=== PATIENT | male | born 1960 | race African-American/Black ===

== ENCOUNTER 2019-05-10 15:00 | Observation (INO) | payer MEDICAID, OTHER ==
[2019-05-10] MEDS ORDERED: Nitroglycerin 2% Ointment 1 INCH/1 GM Packet ONE (15:20)
[2019-05-10 15:27] LABS: Hemoglobin 14.7 g/dL (14.0-18.0); Mean Corpuscular HGB CONC 34.1 g/dL (32.0-36.0); Mean Corpuscular Hemoglobin 33.2 pg (27.0-31.0); Mean Corpuscular Volume 97.4 fL (78.0-98.0); Mean Platelet Volume 8.7 fL (7.4-10.4); Platelet Count 152 thou/uL (130-400); RBC Distribution Width 11.9 % (11.5-14.5); Red Blood Cell (RBC) Count 4.42 mill/uL (4.70-6.10); White Blood Cell (WBC) Count 4.3 thou/uL (4.8-10.8)
[2019-05-10 15:35] LABS: INR-International Normal Ratio 0.9; PTT 29.3 SEC (22.9-36.1); Prothrombin Time 12.4 SEC (12.0-14.7)
--- NOTE | 2019-05-10 15:45 | CT ---
CT Brain WO Con: 05/10/2019 3:13 PM CLINICAL HISTORY: Stroke alert for right-sided weakness. IMAGING TECHNIQUE: Multiple CT images were obtained of the brain without IV contrast. COMPARISON: None. FINDINGS: Brain: No acute infarct or hemorrhage is evident. No midline shift. Ventricles: Normal. No hydrocephalus.. Skull: Intact.. Visualized Paranasal sinuses: Clear.. Mastoid air cells:Clear. Extracranial soft tissues:Normal. IMPRESSION: No acute intracranial abnormality. Findings called to Dr. Paz at 3:43 PM on May 10, 2019.
[2019-05-10 15:47] LABS: Band 2 % (5-11); Lymphocytes 28 % (21-51); MDiff Complete? YES; Monocytes 8 % (0-10); Neutrophil 53 % (42-75); Platelet Morphology Comment Appears Adequate; Reactive Lymphocytes 9 % (0-10)
[2019-05-10 15:49] LABS: ALT (SGPT) 15 U/L (8-55); AST (SGOT) 20 U/L (5-34); Albumin 4.2 g/dL (3.5-5.0); Alkaline Phosphatase 70 U/L (40-110); Anion Gap 10 mmol/L (10-20); BUN (Urea Nitrogen) 9 mg/dL (8.4-25.7); Bilirubin, Total 0.6 mg/dL (0.2-1.2); Calc. Creatinine Clearance 0 mL/min (70-130); Calcium 9.6 mg/dL (7.8-10.44); Carbon Dioxide 30 mmol/L (22-29); Chloride 103 mmol/L (98-107); Estimated GFR-MDRD Greater than 90; Globulin 2.9 g/dL (2.4-3.5); Glucose 89 mg/dL (70-105); Potassium 3.8 mmol/L (3.5-5.1); Protein, Total 7.1 g/dL (6.0-8.3); Sodium 139 mmol/L (136-145)
[2019-05-10] MEDS ORDERED: Aspirin 325 MG TAB ONE (16:14)
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
[2019-05-10] MEDS ORDERED: Ondansetron ODT 4 MG TAB PO PRN (18:23)
[2019-05-10] MEDS ORDERED: hydrALAZINE 20 MG/ML VIAL SLOW IVP PRN (18:23)
[2019-05-10] MEDS ORDERED: Ondansetron PF 4 MG/2 ML Vial IVP PRN (18:23)
[2019-05-10] MEDS ORDERED: Acetaminophen 325 MG TAB PO PRN (18:23)
[2019-05-10] MEDS ORDERED: Nicotine 14 MG PATCH TD SCH (19:00)
[2019-05-10 19:20] LABS: INR-International Normal Ratio 0.8; Prothrombin Time 11.4 SEC (12.0-14.7)
[2019-05-10 19:23] LABS: Hemoglobin A1c 5.4 % (4.0-6.0)
[2019-05-10] MEDS ORDERED: Atorvastatin Calcium 40 MG TAB PO SCH (21:00)
[2019-05-11 01:09] LABS: Amphetamine Not Detected (NotDetected); Barbiturates Screen Not Detected (NotDetected); Benzodiazepine Screen Not Detected (NotDetected); Cocaine Metabolite Screen Not Detected (NotDetected); Medtox Control Line Valid? VALID (VALID); Medtox Reader # READER 4; Methadone Not Detected (NotDetected); Methamphetamine Not Detected (NotDetected); Opiate Screen Not Detected (NotDetected); Oxycodone Screen Not Detected (NotDetected); Phencyclidine (PCP) Not Detected (NotDetected); THC/Cannabinoid Screen Not Detected (NotDetected); Tricyclic Screen Not Detected (NotDetected)
[2019-05-11 05:43] LABS: #Eosinphils 0.1 thou/uL (0.0-0.7); #Lymphocytes 1.4 thou/uL (1.20-3.40); #Monocytes 0.5 thou/uL (0.11-0.59); #Neutrophils 1.9 thou/uL (1.40-6.50); %Basophils 1.1 % (0.0-1.0); %Eosinophils 2.8 % (0.0-10.0); %Lymphocytes 35.6 % (21.0-51.0); %Monocytes 13.3 % (0.0-10.0); %Neutrophils 47.2 % (42.0-75.0); Hemoglobin 13.9 g/dL (14.0-18.0); Mean Corpuscular HGB CONC 32.8 g/dL (32.0-36.0); Mean Corpuscular Hemoglobin 31.8 pg (27.0-31.0); Mean Corpuscular Volume 96.9 fL (78.0-98.0); Mean Platelet Volume 8.7 fL (7.4-10.4); Platelet Count 170 thou/uL (130-400); RBC Distribution Width 11.7 % (11.5-14.5); Red Blood Cell (RBC) Count 4.37 mill/uL (4.70-6.10); White Blood Cell (WBC) Count 3.9 thou/uL (4.8-10.8)
[2019-05-11 05:53] LABS: Anion Gap 8 mmol/L (10-20); BUN (Urea Nitrogen) 10 mg/dL (8.4-25.7); Calc. Creatinine Clearance 72 mL/min (70-130); Calcium 9.7 mg/dL (7.8-10.44); Carbon Dioxide 30 mmol/L (22-29); Cardiac Risk 3.4 (Less than 4.5); Chloride 103 mmol/L (98-107); Cholesterol 207 mg/dl (< 200 Desired); Estimated GFR-MDRD Greater than 90; Glucose 89 mg/dL (70-105); HDL Cholesterol 61 mg/dL (>60 Neg Risk); LDL Cholesterol, Calculated 129 mg/dL; Potassium 3.6 mmol/L (3.5-5.1); Sodium 137 mmol/L (136-145); Triglycerides 86 mg/dL (Less than 150)
--- NOTE | 2019-05-11 06:27 | PDOC.FM ---
- Subjective Subjective: NAEO. Right sided numbness/tingling but no changes otherwise. - Objective MAR Reviewed: Yes Vital Signs & Weight: Vital Signs (12 hours) Temp Pulse Resp BP Pulse Ox 05/11/19 04:00 98.3 F 52 L 16 119/78 98 05/10/19 23:15 98.7 F 56 L 16 129/85 99 05/10/19 19:50 97.2 F L 56 L 16 159/87 H 99 05/10/19 18:33 97.5 F L 58 L 16 206/114 H 99 Weight Weight 56.7 kg Result Diagrams: 05/11/19 05:01 05/11/19 05:01 Phys Exam - Physical Examination Constitutional: NAD HEENT: moist MMs, sclera anicteric Respiratory: no wheezing, clear to auscultation bilateral Cardiovascular: RRR, no significant murmur Neurological: non-focal, moves all 4 limbs decreased sensation in right face, arm and leg Psychiatric: normal affect, A&O x 3 Skin: no rash, cap refill <2 seconds Dx/Plan (1) Sensory deficit, right Code(s): R41.89 - OTH SYMPTOMS AND SIGNS W COGNITIVE FUNCTIONS AND AWARENESS Status: Acute (2) HTN (hypertension) Code(s): I10 - ESSENTIAL (PRIMARY) HYPERTENSION Status: Acute (3) Tobacco abuse Code(s): Z72.0 - TOBACCO USE Status: Acute (4) GERD (gastroesophageal reflux disease) Code(s): K21.9 - GASTRO-ESOPHAGEAL REFLUX DISEASE WITHOUT ESOPHAGITIS Status: Chronic (5) Cerebrovascular accident Code(s): I63.9 - CEREBRAL INFARCTION, UNSPECIFIED Status: Acute - Plan Plan: #. Right sided neuropathy, CVA rule out -CT head-No ICH, not hemorrhagic -Although within tPA time frame, did not meet inclusion criteria -Suspect ishemic CVA- Pending Brain MRI, MRA head/neck, echo -Allow for permissive HTN 180-220/<120, PRN antihypertensives until imaging complete or 24-48hrs -ASA, statin -Neuro consult pending imaging results #. Reflux -Continue home meds #. 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 cHTN -Can start on amlodipine after 24-48 hr time period Dvt ppx: lovenox Dispo: <2 midnights PCP: OOT Addendum - Attending - Attending Attestation Date/Time: 05/11/19 0821 I personally discussed the management with Dr. Paniagua I agree with the History, Examination, Assessment and Plan documented above with any addition or exceptions noted below. Patient down for imaging during rounds. If negative workup, ok to d/c to home. ABCD2 score of 3. Would benefit from ASA and statin. Dr. Lucio to see patient. Fernando
[2019-05-11] MEDS ORDERED: Aspirin 325 mg Enteric Coated Tablet PO SCH (09:00)
[2019-05-11] MEDS ORDERED: Famotidine/PF 20 mg/2ml Vial SLOW IVP SCH (09:00)
[2019-05-11] MEDS ORDERED: Lorazepam 2 MG/ML VIAL SLOW IVP SCH (09:30)
--- NOTE | 2019-05-11 09:45 | RAD ---
EXAM: Single view of the abdomen HISTORY: Metal assessment prior to MRI COMPARISON: None FINDINGS: Single view of the abdomen shows a nonspecific, nonobstructive bowel gas pattern. No suspi cious calcifications are seen. The bones are unremarkable. No radiopaque foreign body is seen. IMPRESSION: Unremarkable exam
--- NOTE | 2019-05-11 09:45 | RAD ---
EXAM: Single view of the chest HISTORY: Mental assessment prior to MRI. COMPARISON: None FINDINGS: Single view of the chest shows a normal sized cardiomediastinal silhouette. Sternotomy wir es are seen. No other metallic foreign body is seen. There is no evidence of consolidation, mass, or pleural effusion. The bones are unremarkable. IMPRESSION: No evidence of acute cardiopulmonary disease
[2019-05-11 10:43] VITALS: BMI 14.8
--- NOTE | 2019-05-11 11:43 | MRI ---
MRI BRAIN NONCONTRAST: INDICATIONS: Stroke. FINDINGS: There is no evidence of ventriculomegaly, mass effect, midline shift or acute territorial infarction. Minimal chronic ischemic disease of the cerebral white matter is present. The visualized skull base flow voids are patent. No hemorrhagic susceptibility. IMPRESSION: No acute intracranial abnormalities. POS: C
[2019-05-11 11:49] VITALS: TEMP 97.5
[2019-05-11 12:05] VITALS: BP 165/95
--- NOTE | 2019-05-11 12:17 | MRI ---
MRA (MAGNETIC RESONANCE ANGIOGRAM) HEAD NONCONTRAST: 05/11/2019 HISTORY: A 58-year-old male with CVA, acute right-sided weakness. TECHNIQUE: 3D [id number] MRA acquired in multiple axial slabs through the koi of [place]. Source images an d 3D MIP reconstructions evaluated. FINDINGS: No short segment acquired high-grade stenosis of major arteries of anterior or posterior circulation. No occlusion. No aneurysm larger than 3 mm identified. IMPRESSION: Normal. POS: TPC
--- NOTE | 2019-05-11 12:22 | MRI ---
MRA MAGNETIC RESONANCE ANGIOGRAM NECK WITH AND WITHOUT CONTRAST: DATE: 05/11/2019. HISTORY: A 58-year-old male with acute stroke symptoms: right upper extremity weakness. TECHNIQUE: 2D [id number] MRA acquired in multiple axial sequences centered at carotid bifurcation. IV injection of 11 mL of MultiHance, gadolinium-based contrast agent. Postcontrast MRA acquired in coronal slab from aortic arch to skull base. Source images and 3D MIP reconstructions evaluated. FINDINGS: Bovine origin of left common carotid. Brachiocephalic, bilateral subclavian, bilateral common caroti d, bilateral internal carotid, and bilateral vertebral arteries are normal in caliber with no stenosi s. IMPRESSION: Normal. POS: TPC
[2019-05-12] MEDS ORDERED: Aspirin 81 mg Enteric Coated Tablet PO SCH (09:00)
[2019-05-12] MEDS ORDERED: Amlodipine 5 MG TAB PO SCH (09:00)
--- NOTE | 2019-05-16 09:09 | DIS ---
DATE OF ADMISSION: 05/10/2019 DATE OF DISCHARGE: 05/11/2019 CONSULTS: None. PROCEDURES AND IMAGIN. Brain CT, no intracranial hemorrhage or abnormalities noted. 2. Brain MRI, no acute intracranial abnormalities. 3. Brain and neck MRA, no short-segment quite high-grade stenosis, major arteries anterior posterior circulation. No occlusion. No aneurysm larger than 3 mm identified. Bilateral common carotid, internal carotid, and vertebral arteries normal in caliber with no stenosis. HOME MEDICATIONS: 1. Omeprazole 40 mg p.o. daily. 2. Aspirin 81 mg p.o. daily. 3. Atorvastatin 40 mg p.o. at bedtime. 4. Nicotine patch 14 mg transdermal. 5. Amlodipine 5 mg p.o. daily. PRIMARY DIAGNOSES: 1. Possible transient ischemic attack. 2. Chronic hypertension. 3. Tobacco abuse. 4. Sinus bradycardia. HISTORY OF PRESENT ILLNESS/HOSPITAL COURSE: Mr. Valerio is a 58-year-old male with chronic hypertension who came to the ER after an episode at work, where he experienced an aphasic episode. The patient reported associated right-sided facial and upper and lower extremity numbness. All these symptoms have resolved upon arriving in the ER, except for the right upper and lower extremity numbness and tingling, which upon further questioning, had actually been chronic due to OA and a posterior shoulder lipoma. He did not meet inclusion criteria for tPA and was admitted for TIA versus CVA rule out. The patient returned to said baseline upon discharge. CTA head/neck was negative for any type of arterial occlusion and brain MRI negative for ischemic brain changes. In regards to the persistent upper arm extremity tingling or numbness, his repeat neuro exam was normal with preservation of discrimniation. Patient revealed these symptoms were chronic. It could be that the lipoma on his right posterior shoulder could be impinging on sensory nerves. Recommended follow up. It is possible the patient experienced a TIA. Risk stratification was grossly normal, however, started on aspirin and a statin. Consider neuropathic causes, but none of which are life-threatening at this time. He will need followup on the transthoracic echo, which was obtained for his sinus bradycardia. Upon tele review, he has remained in normal sinus rhythm. The patient is a tall , lean, fit man so it could be that this is around his baseline. He is instructed to follow up with his PCP in regard to this. Chronic hypertension. The patient was not taking anything in regard to this, so I started on amlodipine and instructions to follow up. DISPOSITION: Stable. DISCHARGE INSTRUCTIONS: 1. Location: Home. 2. Diet: Heart healthy. 3. Activity: Ad beck as tolerated. 4. Followup: Follow up with PCP, Dr. Miranda in [place] in regard to hospital stay. Job ID: [id number] [id number]
== END 2019-05-11 14:48 | disposition home or self-care (01) ==
LOC: ERS 15:00 → 2SE 18:17
PROVIDERS: ADMIT Family Medicine; ATTEND Family Medicine
DX: R41.89 Other symptoms and signs involving cognitive functions and awareness (principal); R20.0 Anesthesia of skin; I10 Essential (primary) hypertension; F17.210 Nicotine dependence, cigarettes, uncomplicated; K21.9 Gastro-esophageal reflux disease without esophagitis; R00.1 Bradycardia, unspecified; Z79.82 Long term (current) use of aspirin; Z79.899 Other long term (current) drug therapy; Z91.14 Patient's other noncompliance with medication regimen
CPT/HCPCS: 36415; 70450; 70544; 70549; 70551; 71045; 74018; 80048; 80053; 80061; 80306; 83036; 85025; 85610; 85730; 93306; 96374; G0378; S0028

== ENCOUNTER 2024-04-07 10:35 | Emergency (ER) | payer MEDICAID, OTHER, SELFPAY | END 2024-04-07 13:36 | disposition home or self-care (01) | LOC: ERS 10:35 | DX: M16.12 Unilateral primary osteoarthritis, left hip (principal); I10 Essential (primary) hypertension; F17.210 Nicotine dependence, cigarettes, uncomplicated | CPT/HCPCS: 72110; 72170; 99283 ==